=== PATIENT | male | born 1950 | race Caucasian/White ===

== ENCOUNTER 2017-12-04 18:20 | Inpatient (IN) | payer OTHER, MEDICARE ==
[~2017-12-04] VITALS: Ht 185.4 cm; Wt 93.6 kg
[2017-12-04] MEDS ORDERED: ALBU4 PO (19:38)
[2017-12-04] MEDS ORDERED: ALBU90OI INH (19:38)
[2017-12-04] MEDS ORDERED: BECL25NI (19:38)
[2017-12-04] MEDS ORDERED: CYCL10 PO (19:38)
[2017-12-04] MEDS ORDERED: ALLEGRA ALLERG180 M1 PO (19:39)
[2017-12-04] MEDS ORDERED: FLUTICASONE (19:40)
[2017-12-04] MEDS ORDERED: LAMO25 PO (19:43)
[2017-12-04] MEDS ORDERED: LISI20 PO (19:44)
[2017-12-04] MEDS ORDERED: LOVA40 (19:48)
[2017-12-04] MEDS ORDERED: MELA3 PO (19:48)
[2017-12-04] MEDS ORDERED: Albuterol2.5 MG/0.5 INH (20:03)
[2017-12-04] MEDS ORDERED: Omeprazole20 M1 PO (20:04)
[2017-12-04] MEDS ORDERED: SILD50TA PO (20:05)
[2017-12-04] MEDS ORDERED: FISH OIL 1,0001 EAC1 PO (20:05)
[2017-12-04 22:54] LABS: Albumin, Blood 3.8 g/dL (3.4-5.0); Albumin/Globulin Ratio 1.5 (0.8-1.8); Bilirubin, Total 0.7 mg/dL (0.1-1.0); Bun/Creatinine Ratio 23.1 (12.0-20.0); Calcium, Blood 8.4 mg/dL (8.5-10.1); Creatinine, Blood 1.69 mg/dL (0.60-1.20); Globulin, Blood 2.5 g/dL (2.2-4.0); Total Protein, Blood 6.3 g/dL (6.4-8.2)
[2017-12-05 02:24] LABS: Creatinine, Blood 1.48 mg/dL (0.60-1.20); Potassium, Blood 5.1 mmol/L (3.5-5.5)
[2017-12-05 02:41] LABS: Lithium 1.86 mmol/L (0.60-1.20)
[2017-12-05 06:33] LABS: Bun/Creatinine Ratio 23.9 (12.0-20.0); Calcium, Blood 8.3 mg/dL (8.5-10.1); Creatinine, Blood 1.38 mg/dL (0.60-1.20); Potassium, Blood 4.7 mmol/L (3.5-5.5)
[2017-12-05 11:03] LABS: Bun/Creatinine Ratio 23.1 (12.0-20.0); Calcium, Blood 8.6 mg/dL (8.5-10.1); Creatinine, Blood 1.3 mg/dL (0.60-1.20); Potassium, Blood 4.4 mmol/L (3.5-5.5)
[2017-12-05 11:16] LABS: Lithium 1.67 mmol/L (0.60-1.20)
[2017-12-05] MEDS ORDERED: LITH300C PO (11:52)
[2017-12-05] MEDS ORDERED: RISP2 PO (11:54)
[2017-12-05 14:24] LABS: Anion Gap 7 mmol/L (6-16); Blood Urea Nitrogen 25 mg/dL (8-24); Bun/Creatinine Ratio 21.2 (12.0-20.0); CO2, Blood 19 mmol/L (21-32); Calcium, Blood 8.4 mg/dL (8.5-10.1); Chloride, Blood 112 mmol/L (98-108); Creatinine, Blood 1.18 mg/dL (0.60-1.20); Glomerular Filtration Rate >60 (60-); Glucose, Blood 143 mg/dL (70-99); Potassium, Blood 4.3 mmol/L (3.5-5.5); Sodium, Blood 138 mmol/L (136-145)
[2017-12-05 15:05] LABS: Lithium 1.57 mmol/L (0.60-1.20)
[2017-12-05 20:19] LABS: Lithium 1.52 mmol/L (0.60-1.20)
[2017-12-06 04:07] LABS: Anion Gap 6 mmol/L (6-16); Blood Urea Nitrogen 16 mg/dL (8-24); Bun/Creatinine Ratio 14.5 (12.0-20.0); CO2, Blood 22 mmol/L (21-32); Calcium, Blood 8.2 mg/dL (8.5-10.1); Chloride, Blood 113 mmol/L (98-108); Glomerular Filtration Rate >60 (60-); Glucose, Blood 91 mg/dL (70-99); Magnesium, Blood 1.7 mg/dL (1.6-2.4); Potassium, Blood 4.2 mmol/L (3.5-5.5); Sodium, Blood 141 mmol/L (136-145)
[2017-12-06 15:16] LABS: Lithium 1.13 mmol/L (0.60-1.20)
[2017-12-07] MEDS ORDERED: OLAN10A PO (09:49)
== END 2017-12-07 13:43 | disposition home or self-care (01) | DRG 92 ==
LOC: ER 18:20 → ICUW 20:42 → MEDS 20:42 → ICUW 12-06 18:06 → MEDS 12-06 22:07 → ENPENDDIS 12-07 09:49 → MEDS 12-07 13:43
PROVIDERS: Internal Medicine
PROC: 3E0234Z Introduction of Serum, Toxoid and Vaccine into Muscle, Percutaneous Approach (ICD-10-PCS; principal; 2017-12-05)
DX: G92 Toxic encephalopathy (principal); N17.9 Acute kidney failure, unspecified; E87.1 Hypo-osmolality and hyponatremia; E87.5 Hyperkalemia; T50.3X5A Adverse effect of electrolytic, caloric and water-balance agents, initial encounter; T43.595A Adverse effect of other antipsychotics and neuroleptics, initial encounter; I10 Essential (primary) hypertension; F31.9 Bipolar disorder, unspecified; E78.5 Hyperlipidemia, unspecified; Z23 Encounter for immunization; Z79.51 Long term (current) use of inhaled steroids; Z79.899 Other long term (current) drug therapy
CPT/HCPCS: 36415; 80048; 80053; 80175; 80178; 83735; 99285; G0008; J1650; J7030; Q2038